=== PATIENT | female | born 1990 ===

== ENCOUNTER 2017-05-21 12:33 | Emergency (ER) | payer MEDICAID ==
[2017-05-21 12:53] VITALS: RESP 18; TEMP 98.1
[2017-05-21 14:22] VITALS: BP 120/72; PULSE 69; O2SAT 98
--- NOTE | 2017-05-21 22:07 | C.PDOC ---
History Of Present Illness 26 year old female presents to the ED with complaints of posterior left sided neck and shoulder pain for approximately one week. Patient notes she lifts heavy objects on occasion. She denies direct trauma, fall, numbness, tingling, or use of pain medications. Chief Complaint (Nursing): Back Pain History Per: Patient History/Exam Limitations: no limitations Onset/Duration Of Symptoms: Days (1 weeks ) Current Symptoms Are (Timing): Still Present Quality Of Discomfort: "Pain" Previous Symptoms: None Associated Symptoms: None Exacerbating Factor(s): Nothing Recent travel outside of the [place]: No Past Medical History Reviewed: Historical Data, Nursing Documentation, Vital Signs Vital Signs: Last Vital Signs Temp 98.1 F 05/21/17 12:50 Pulse 69 05/21/17 14:20 Resp 18 05/21/17 14:20 BP 120/72 05/21/17 14:20 Pulse Ox 98 05/21/17 22:09 Family History: States: Unknown Family Hx - Social History Hx Tobacco Use: No Hx Alcohol Use: Yes Hx Substance Use: No - Immunization History Hx Influenza Vaccination: Yes Hx Pneumococcal Vaccination: No Review Of Systems Constitutional: Negative for: Fever Musculoskeletal: Positive for: Neck Pain (left neck pain ), Shoulder Pain (left shoulder pain ) Neurological: Negative for: Weakness, Numbness Physical Exam - Physical Exam Appears: Non-toxic, No Acute Distress Skin: Warm, Dry Head: Atraumatic, Normacephalic Eye(s): bilateral: Normal Inspection, PERRL, EOMI Oral Mucosa: Moist Neck: Normal ROM, No Midline Cervical Tenderness, No Paracervical Tenderness, Supple Cardiovascular: Rhythm Regular, No Murmur Respiratory: No Rales, No Rhonchi, No Wheezing, Other (clear to auscultation bilaterally ) Gastrointestinal/Abdominal: Soft, No Tenderness, No Distention, No Guarding, No Rebound Extremity: Normal ROM (Full ROM of left shoulder ), Tenderness (to posterior left shoulder ), Capillary Refill (good capillary refill, less than two seconds ), No Deformity, No Swelling Pulses: Left Radial: Normal, Right Radial: Normal Neurological/Psych: Oriented x3, Normal Motor, Normal Sensation ED Course And Treatment O2 Sat by Pulse Oximetry: 98 (RA) Progress Note: Patient was given Motrin. Disposition - Disposition Referrals: [facility] [Outside] [facility] [Outside] Disposition: HOME/ ROUTINE Disposition Time: 13:50 Condition: GOOD Additional Instructions: Thank you for letting us take care of you today. Your provider was Dr. Bhandari. You were treated for back pain. The emergency medical care you received today was directed at your acute symptoms. If you were prescribed any medication, please fill it and take as directed. It may take several days for your symptoms to resolve. Return to the Emergency Department if your symptoms worsen, do not improve, or if you have any other problems. Please contact your doctor or call one of the physicians/clinics you have been referred to that are listed on the Patient Visit Information form that is included in your discharge packet. Bring any paperwork you were given at discharge with you along with any medications you are taking to your follow up visit. Our treatment cannot replace ongoing medical care by a primary care provider (PCP) outside of the emergency department. Thank you for allowing the [facility] team to be part of your care today. Follow up with your doctor or our clinic in 3-5 days for re-evaluation and further management. Jose por dejarnos atenderlo zaky. Macias proveedor fue el Dr. Bhandari. Usted fue tratado por dolor de espalda. La atencin mdica de emergencia que recibi hoy estaba dirigida a lamar sntomas agudos. Si le prescribieron algn medicamento , llnelo y tome segn las indicaciones. Lamar sntomas pueden tardar varios velasquez en resolverse. Regrese al Departamento de Emergencia si lamar sntomas empeoran, no mejoran o si tiene algn otro problema. Comunquese con macias mdico o llame a yolanda de los mdicos / clnicas a los que lawrence sido referido que figura en el formulario de Informacin de visita del paciente que se incluye en macias paquete de katie. Traiga todos los documentos que recibi al momento del katie junto con los medicamentos que est tomando en macias visita de seguimiento. Nuestro tratamiento no puede reemplazar la atencin mdica en curso por parte de un proveedor de atencin primaria (PCP) fuera del departamento de emergencias. Jose por permitir que el equipo de [facility] sea parte de macias cuidado hoy. Emilio un seguimiento con macias mdico o nuestra clnica en 3-5 velasquez para nisa reevaluacin y administracin adicional. Prescriptions: Cyclobenzaprine [Cyclobenzaprine HCl] 10 mg PO Q8 PRN #20 tab PRN Reason: Muscle Spasm Ibuprofen [Motrin] 600 mg PO Q6 PRN #20 tab PRN Reason: Pain, Moderate (4-7) Forms: Gen Discharge Inst Burmese Print Language: PAKISTANI - Clinical Impression Clinical Impression: Thoracic back sprain - Scribe Statement The provider has reviewed the documentation as recorded by the Scribe Eneida Abraham All medical record entries made by the Scribe were at my direction and personally dictated by me. I have reviewed the chart and agree that the record accurately reflects my personal performance of the history, physical exam, medical decision making, and the department course for this patient. I have also personally directed, reviewed, and agree with the discharge instructions and disposition.
== END 2017-05-21 14:21 | disposition home or self-care (01) ==
LOC: C.ER 12:33
DX: S23.3XXA Sprain of ligaments of thoracic spine, initial encounter (principal); X50.0XXA Overexertion from strenuous movement or load, initial encounter

== ENCOUNTER 2018-01-11 20:25 | Emergency (ER) | payer MEDICAID ==
[2018-01-11 20:36] VITALS: BP 140/76; PULSE 108; TEMP 99.4; O2SAT 97
--- NOTE | 2018-01-11 21:07 | C.PDOC ---
History Of Present Illness 27 y/o female at 17 months presents to the ED complaining of nasal congestion, cough, sore throat, left ear pain and fever for the past couple of days. Patient reports taking tylenol for the symptoms with mild relief. She denies any nausea, vomiting, abdominal pain or other complaints. Time Seen by Provider: 01/11/18 20:38 Chief Complaint (Nursing): Cough, Cold, Congestion History Per: Patient History/Exam Limitations: no limitations Onset/Duration Of Symptoms: Days Current Symptoms Are (Timing): Still Present Location Of Pain: Ear(s) (Left ), Sinus/es Sick Contacts (Context): None Associated Symptoms: Fever, Sore Throat, Cough, Nasal Congestion. denies: Nausea, Vomiting Past Medical History Reviewed: Historical Data, Nursing Documentation, Vital Signs Vital Signs: Last Vital Signs Temp 99.4 F 01/11/18 20:33 Pulse 108 H 01/11/18 20:33 Resp 20 01/11/18 21:20 BP 140/76 01/11/18 20:33 Pulse Ox 97 01/11/18 22:03 - Medical History PMH: No Chronic Diseases Denies: Chronic Kidney Disease Surgical History: No Surg Hx Family History: States: No Known Family Hx - Social History Hx Tobacco Use: No Hx Alcohol Use: No Hx Substance Use: No - Immunization History Hx Influenza Vaccination: Yes Hx Pneumococcal Vaccination: No Review Of Systems Except As Marked, All Systems Reviewed And Found Negative. Constitutional: Positive for: Fever ENT: Positive for: Ear Pain (Left ear), Nose Congestion, Throat Pain Respiratory: Positive for: Cough Gastrointestinal: Negative for: Nausea, Vomiting, Abdominal Pain Physical Exam - Physical Exam Appears: Non-toxic, No Acute Distress Skin: Normal Color, Warm, Dry Head: Atraumatic, Normacephalic Eye(s): bilateral: Normal Inspection, PERRL, EOMI Ear(s): Bilateral: Normal Nose: Discharge, Other (Enlarged nasal turbinates) Neck: Normal ROM, Supple Chest: Symmetrical, No Deformity Cardiovascular: Rhythm Regular Respiratory: Normal Breath Sounds, No Rales, No Rhonchi, No Wheezing Gastrointestinal/Abdominal: Normal Exam (gravid), No Tenderness Neurological/Psych: Oriented x3 Gait: Steady ED Course And Treatment O2 Sat by Pulse Oximetry: 97 (RA) Pulse Ox Interpretation: Normal Progress Note: Orders: Benadryl 50mg PO. Patient instructed to take meds as directed, use saline nose drops and to follow up with PMD in 1-2 days. Disposition Counseled Patient/Family Regarding: Diagnosis, Need For Followup, Rx Given - Disposition Referrals: [facility] [Outside] Disposition: HOME/ ROUTINE Disposition Time: 21:03 Condition: STABLE Additional Instructions: Take meds as directed Use warm steam from shower Follow up with OB doctor PMD Return if worse Prescriptions: DiphenhydrAMINE [Benadryl] 25 mg PO QID #20 cap Sodium Chloride/Sodium Bicarb [Nasa Mist Saline Spearfish] 1 - 2 drop NS Q6 #1 spray Instructions: Upper Respiratory Infection (ED) Forms: [employer] (Urdu) Print Language: ARMENIAN - Clinical Impression Clinical Impression: Upper respiratory infection - 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 - Scribe Statement The provider has reviewed the documentation as recorded by the Scribe Nancy Randolph All medical record entries made by the Alexanderiblynn were at my direction and personally dictated by me. I have reviewed the chart and agree that the record accurately reflects my personal performance of the history, physical exam, medical decision making, and the department course for this patient. I have also personally directed, reviewed, and agree with the discharge instructions and disposition.
[2018-01-11 21:21] VITALS: RESP 20
== END 2018-01-11 21:20 | disposition home or self-care (01) ==
LOC: C.ER 20:25
DX: J06.9 Acute upper respiratory infection, unspecified (principal)